=== PATIENT | female | born 1970 | race Caucasian/White ===

== ENCOUNTER 2019-02-18 16:19 | Inpatient (IN) ==
[2019-02-18] MEDS ORDERED: Ondansetron 4 MG/2 ML VIAL IVP ONE (16:29)
[2019-02-18] MEDS ORDERED: 0.9 % Sodium Chloride 1,000 ML IVC ONE (16:29)
[2019-02-18] MEDS ORDERED: Isovue-370 500 ML BOTTLE IVP ONE (16:32)
[2019-02-18 17:14] LABS: Basophils # 0.1 K/mcL (0.0-0.2); Basophils % 0.4 %; Eosinophils # 0.2 K/mcL (0.0-0.6); Eosinophils % 0.7 %; Hematocrit 42.1 % (35.3-44.9); Hemoglobin 14.5 g/dL (11.5-15.4); Immature Granulocytes % 0.5 % (0-4); Lymphocytes # 2.7 K/mcL (0.6-4.6); Lymphocytes % 11.1 %; Mean Corpuscular HGB Conc 34.4 g/dL (31.6-35.5); Mean Corpuscular Hemoglobin 31.3 pg (28.0-33.3); Mean Corpuscular Volume 90.7 fL (83.0-100.0); Mean Platelet Volume 9.1 fL (9.4-12.4); Monocytes # 1.3 K/mcL (0.0-1.3); Monocytes % 5.5 %; Neutrophils # 20.1 K/mcL (1.6-8.9); Platelet Count 364 K/mcL (140-400); Red Blood Count 4.64 M/mcL (3.82-4.97); Segmented Neutrophils % 81.8 %; White Blood Count 24.6 K/mcL (4.3-11.1)
[2019-02-18 17:35] LABS: Alanine Aminotransferase 5 Units/L (7-52); Albumin/Globulin Ratio 1.4 (1.1-2.2); Alkaline Phosphatase 87 Units/L (34-104); Aspartate Amino Transferase 9 Units/L (13-39); BUN/Creatinine Ratio 10 (6-26); Bilirubin,Total 0.5 mg/dL (0.3-1.0); Blood Urea Nitrogen 8 mg/dL (6-20); Calcium 8.8 mg/dL (8.6-10.3); Carbon Dioxide 26 mEq/L (23-29); Chloride 102 mEq/L (98-107); Globulin 2.9 g/dL (2.4-3.5); Glucose 92 mg/dL (70-105); Lipase 10 Units/L (11-82); Osmolality,Calculated 282 (280-300); Potassium 3.8 mEq/L (3.5-5.1); Sodium 137 mEq/L (136-145); Total Protein 6.9 g/dL (6.4-8.9); eGFR For African Americans > 60 (> 60); eGFR For Non-African Americans > 60 (> 60)
[2019-02-18] MEDS ORDERED: *HR* FentaNYL (PF) 100 MCG/2 ML VIAL IVP ONE (18:12)
[2019-02-18 18:28] LABS: Bilirubin,Urine Negative (Negative); Blood,Urine Trace (Negative); Clarity,Urine Clear (Clear); Color,Urine Yellow (Yellow); Glucose,Urine (UA) Normal (Normal); Ketones,Urine Negative (Negative); Leukocyte Esterase,Urine Negative (Negative); Nitrite,Urine Negative (Negative); PH,Urine 6.5 pH Units (5.0-8.0); Protein,Urine Negative (Neg-Trace); Specific Gravity,Urine 1.017 (1.010-1.025); Urobilinogen,Urine Normal (Normal)
[2019-02-18] MEDS ORDERED: MetroNIDAZOLE 500 MG/100 ML 500 MG/100 ML BAG IVPB ONE (18:28)
[2019-02-18 18:30] LABS: Bacteria,Urine None Seen per hpf (None-Few); Hyaline Casts,Urine None Seen per lpf (None-Few); Squamous Epithelial Cell,Urine Many per lpf (None-Few); WBC,Urine 0-3 per hpf (0-3)
[2019-02-18] MEDS ORDERED: Naloxone 0.4 MG/ML INJ IVP PRN (20:39)
[2019-02-18] MEDS: 0.9 % Sodium Chloride 1,000 ML IVC SCH (21:01)
[2019-02-18] MEDS: Ketorolac 15 MG/ML VIAL IVP PRN (21:02)
[2019-02-18] MEDS: MetroNIDAZOLE 500 MG/100 ML 500 MG/100 ML BAG IVPB SCH (23:28)
[2019-02-19 04:09] LABS: Basophils # 0.1 K/mcL (0.0-0.2); Basophils % 0.4 %; Eosinophils # 0.1 K/mcL (0.0-0.6); Eosinophils % 0.4 %; Hematocrit 36.6 % (35.3-44.9); Immature Granulocytes % 0.5 % (0-4); Lymphocytes % 15.4 %; Mean Corpuscular HGB Conc 33.1 g/dL (31.6-35.5); Mean Corpuscular Hemoglobin 30.9 pg (28.0-33.3); Mean Corpuscular Volume 93.4 fL (83.0-100.0); Mean Platelet Volume 9.2 fL (9.4-12.4); Monocytes # 1.2 K/mcL (0.0-1.3); Monocytes % 6.2 %; Neutrophils # 14.8 K/mcL (1.6-8.9); Platelet Count 284 K/mcL (140-400); Red Blood Count 3.92 M/mcL (3.82-4.97); Red Cell Distribution Width 13.1 % (11.5-14.5); Segmented Neutrophils % 77.1 %; White Blood Count 19.2 K/mcL (4.3-11.1)
[2019-02-19 04:12] LABS: Hemoglobin 12.1 g/dL (11.5-15.4)
[2019-02-19 04:30] LABS: BUN/Creatinine Ratio 9 (6-26); Blood Urea Nitrogen 7 mg/dL (6-20); Calcium 7.9 mg/dL (8.6-10.3); Carbon Dioxide 23 mEq/L (23-29); Chloride 105 mEq/L (98-107); Glucose 87 mg/dL (70-105); Osmolality,Calculated 279 (280-300); Potassium 3.8 mEq/L (3.5-5.1); Sodium 136 mEq/L (136-145); eGFR For African Americans > 60 (> 60); eGFR For Non-African Americans > 60 (> 60)
[2019-02-19] MEDS: MetroNIDAZOLE 500 MG/100 ML 500 MG/100 ML BAG IVPB SCH ×3 (09:11→23:40)
[2019-02-19] MEDS: Nicotine 14 MG PATCH.TD24 TD SCH (09:45)
[2019-02-19] MEDS: 0.9 % Sodium Chloride 1,000 ML IVC SCH (15:02)
[2019-02-19] MEDS: *HR* Heparin 5,000 UNIT/ML VIAL SQ SCH (17:13)
[2019-02-19] MEDS: Ondansetron 4 MG/2 ML VIAL IVP PRN (18:29)
[2019-02-19] MEDS: Ketorolac 15 MG/ML VIAL IVP PRN (20:22)
[2019-02-20] MEDS: 0.9 % Sodium Chloride 1,000 ML IVC SCH (03:33)
[2019-02-20] MEDS: Ondansetron 4 MG/2 ML VIAL IVP PRN ×2 (03:34→12:58)
[2019-02-20] MEDS: *HR* Heparin 5,000 UNIT/ML VIAL SQ SCH ×2 (03:37→18:33)
[2019-02-20 06:04] LABS: Basophils # 0.1 K/mcL (0.0-0.2); Basophils % 0.4 %; Eosinophils # 0.3 K/mcL (0.0-0.6); Eosinophils % 1.5 %; Hematocrit 40.5 % (35.3-44.9); Hemoglobin 13.2 g/dL (11.5-15.4); Immature Granulocytes % 0.5 % (0-4); Lymphocytes # 3.2 K/mcL (0.6-4.6); Lymphocytes % 17.6 %; Mean Corpuscular HGB Conc 32.6 g/dL (31.6-35.5); Mean Corpuscular Hemoglobin 30.8 pg (28.0-33.3); Mean Corpuscular Volume 94.4 fL (83.0-100.0); Mean Platelet Volume 8.7 fL (9.4-12.4); Monocytes # 1.1 K/mcL (0.0-1.3); Monocytes % 5.7 %; Neutrophils # 13.7 K/mcL (1.6-8.9); Platelet Count 312 K/mcL (140-400); Red Blood Count 4.29 M/mcL (3.82-4.97); Red Cell Distribution Width 12.8 % (11.5-14.5); Segmented Neutrophils % 74.3 %; White Blood Count 18.5 K/mcL (4.3-11.1)
[2019-02-20 06:24] LABS: BUN/Creatinine Ratio 9 (6-26); Blood Urea Nitrogen 7 mg/dL (6-20); Calcium 8.5 mg/dL (8.6-10.3); Carbon Dioxide 23 mEq/L (23-29); Chloride 104 mEq/L (98-107); Glucose 71 mg/dL (70-105); Osmolality,Calculated 282 (280-300); Potassium 3.5 mEq/L (3.5-5.1); Sodium 138 mEq/L (136-145); eGFR For African Americans > 60 (> 60); eGFR For Non-African Americans > 60 (> 60)
[2019-02-20] MEDS: Ketorolac 15 MG/ML VIAL IVP PRN (06:56)
[2019-02-20] MEDS ORDERED: Dextrose Gel 15 GM/37.5 ML TUBE PO PRN (08:03)
[2019-02-20] MEDS: MetroNIDAZOLE 500 MG/100 ML 500 MG/100 ML BAG IVPB SCH ×3 (08:31→23:42)
[2019-02-20] MEDS: D5% in 0.9% NACL 1,000 ML IVC SCH (08:31)
[2019-02-20] MEDS: Nicotine 14 MG PATCH.TD24 TD SCH (08:32)
[2019-02-20] MEDS ORDERED: 0.9 % Sodium Chloride 1,000 ML IVC SCH (21:15)
[2019-02-21 05:18] LABS: Basophils # 0.1 K/mcL (0.0-0.2); Basophils % 0.5 %; Eosinophils # 0.3 K/mcL (0.0-0.6); Eosinophils % 2.6 %; Hematocrit 38.9 % (35.3-44.9); Hemoglobin 12.7 g/dL (11.5-15.4); Immature Granulocytes % 0.5 % (0-4); Lymphocytes # 2.5 K/mcL (0.6-4.6); Lymphocytes % 22.9 %; Mean Corpuscular HGB Conc 32.6 g/dL (31.6-35.5); Mean Corpuscular Hemoglobin 30.6 pg (28.0-33.3); Mean Corpuscular Volume 93.7 fL (83.0-100.0); Mean Platelet Volume 9.3 fL (9.4-12.4); Monocytes # 0.7 K/mcL (0.0-1.3); Monocytes % 6.4 %; Neutrophils # 7.4 K/mcL (1.6-8.9); Platelet Count 324 K/mcL (140-400); Red Blood Count 4.15 M/mcL (3.82-4.97); Red Cell Distribution Width 12.8 % (11.5-14.5); Segmented Neutrophils % 67.1 %
[2019-02-21] MEDS: Ondansetron 4 MG/2 ML VIAL IVP PRN ×2 (05:25→13:12)
[2019-02-21] MEDS: *HR* Heparin 5,000 UNIT/ML VIAL SQ SCH ×2 (05:27→19:30)
[2019-02-21 05:38] LABS: BUN/Creatinine Ratio 6 (6-26); Blood Urea Nitrogen 4 mg/dL (6-20); Calcium 8.3 mg/dL (8.6-10.3); Carbon Dioxide 27 mEq/L (23-29); Chloride 106 mEq/L (98-107); Glucose 99 mg/dL (70-105); Osmolality,Calculated 289 (280-300); Potassium 3.6 mEq/L (3.5-5.1); Sodium 141 mEq/L (136-145); eGFR For African Americans > 60 (> 60); eGFR For Non-African Americans > 60 (> 60)
[2019-02-21] MEDS: MetroNIDAZOLE 500 MG/100 ML 500 MG/100 ML BAG IVPB SCH (09:00)
[2019-02-21] MEDS: Nicotine 14 MG PATCH.TD24 TD SCH (09:01)
[2019-02-21] MEDS: Ketorolac 15 MG/ML VIAL IVP PRN (09:02)
[2019-02-21] MEDS: metroNIDAZOLE 500 MG TABLET PO SCH ×2 (19:29→22:13)
[2019-02-21] MEDS: 0.9 % Sodium Chloride 1,000 ML IVC SCH (19:30)
[2019-02-22] MEDS: Ondansetron 4 MG/2 ML VIAL IVP PRN (03:14)
[2019-02-22 05:27] LABS: Basophils # 0.1 K/mcL (0.0-0.2); Basophils % 0.5 %; Eosinophils # 0.3 K/mcL (0.0-0.6); Eosinophils % 3.1 %; Hematocrit 36.1 % (35.3-44.9); Hemoglobin 12.1 g/dL (11.5-15.4); Immature Granulocytes % 0.4 % (0-4); Lymphocytes # 2.5 K/mcL (0.6-4.6); Lymphocytes % 23.4 %; Mean Corpuscular HGB Conc 33.5 g/dL (31.6-35.5); Mean Corpuscular Hemoglobin 30.6 pg (28.0-33.3); Mean Corpuscular Volume 91.2 fL (83.0-100.0); Monocytes # 0.9 K/mcL (0.0-1.3); Monocytes % 8.7 %; Neutrophils # 6.8 K/mcL (1.6-8.9); Platelet Count 294 K/mcL (140-400); Red Blood Count 3.96 M/mcL (3.82-4.97); Red Cell Distribution Width 12.7 % (11.5-14.5); Segmented Neutrophils % 63.9 %; White Blood Count 10.6 K/mcL (4.3-11.1)
[2019-02-22] MEDS: *HR* Heparin 5,000 UNIT/ML VIAL SQ SCH ×2 (05:38→18:06)
[2019-02-22 05:46] LABS: BUN/Creatinine Ratio 9 (6-26); Blood Urea Nitrogen 6 mg/dL (6-20); Calcium 8.3 mg/dL (8.6-10.3); Carbon Dioxide 28 mEq/L (23-29); Chloride 107 mEq/L (98-107); Glucose 98 mg/dL (70-105); Osmolality,Calculated 292 (280-300); Potassium 3.9 mEq/L (3.5-5.1); Sodium 142 mEq/L (136-145); eGFR For African Americans > 60 (> 60); eGFR For Non-African Americans > 60 (> 60)
[2019-02-22] MEDS: Nicotine 14 MG PATCH.TD24 TD SCH (09:04)
[2019-02-22] MEDS: Acetaminophen/Butalbital/CaffeineTABLET PO PRN ×2 (10:33→18:06)
[2019-02-22] MEDS: metroNIDAZOLE 500 MG TABLET PO SCH ×3 (10:34→21:33)
[2019-02-22] MEDS: 0.9 % Sodium Chloride 1,000 ML IVC SCH (14:35)
[2019-02-22] MEDS: Ketorolac 15 MG/ML VIAL IVP PRN (21:34)
[2019-02-23] MEDS: *HR* Heparin 5,000 UNIT/ML VIAL SQ SCH (05:06)
[2019-02-23 06:56] VITALS: BP 130/80
[2019-02-23] MEDS: D5% in 0.9% NACL 1,000 ML IVC SCH (07:13)
[2019-02-23] MEDS: 0.9 % Sodium Chloride 1,000 ML IVC SCH ×2 (07:13→08:19)
[2019-02-23] MEDS: metroNIDAZOLE 500 MG TABLET PO SCH (08:22)
[2019-02-23] MEDS: Nicotine 14 MG PATCH.TD24 TD SCH (08:23)
== END 2019-02-23 12:21 | disposition home or self-care (01) | DRG 244 ==
LOC: 3ANU 16:19 → EMEROOARM 16:19 → SUATTDRO 19:20 → 3ANU 20:16 → SUATTDRO 02-20 11:59
PROVIDERS: ADMIT Internal Medicine; ATTEND Student in an Organized Health Care Education/Training Program

== ENCOUNTER 2019-02-26 09:03 | Inpatient (IN) ==
[2019-02-26] MEDS ORDERED: 0.9 % Sodium Chloride 1,000 ML IVC ONE ×2 (09:40→13:06)
[2019-02-26] MEDS ORDERED: Ipratropium/Albuterol Neb 3 ML IH ONE (09:40)
[2019-02-26 09:51] LABS: Basophils % 0.2 %; Hematocrit 36.3 % (35.3-44.9); Hemoglobin 12.1 g/dL (11.5-15.4); Immature Granulocytes % 1.1 % (0-4); Lymphocytes # 0.6 K/mcL (0.6-4.6); Lymphocytes % 2.9 %; Mean Corpuscular HGB Conc 33.3 g/dL (31.6-35.5); Mean Corpuscular Hemoglobin 30.8 pg (28.0-33.3); Mean Corpuscular Volume 92.4 fL (83.0-100.0); Mean Platelet Volume 9.2 fL (9.4-12.4); Monocytes % 4.6 %; Neutrophils # 19.2 K/mcL (1.6-8.9); Platelet Count 264 K/mcL (140-400); Red Blood Count 3.93 M/mcL (3.82-4.97); Segmented Neutrophils % 91.2 %
[2019-02-26 09:52] LABS: White Blood Count 21.1 K/mcL (4.3-11.1)
[2019-02-26] MEDS ORDERED: Isovue-370 500 ML BOTTLE IVP ONE (10:14)
[2019-02-26 10:19] LABS: Alanine Aminotransferase 7 Units/L (7-52); Albumin 3.4 g/dL (3.5-5.7); Albumin/Globulin Ratio 1.2 (1.1-2.2); Alkaline Phosphatase 94 Units/L (34-104); Aspartate Amino Transferase 12 Units/L (13-39); BUN/Creatinine Ratio 11 (6-26); Bilirubin,Total 0.4 mg/dL (0.3-1.0); Blood Urea Nitrogen 8 mg/dL (6-20); Calcium 8.3 mg/dL (8.6-10.3); Carbon Dioxide 25 mEq/L (23-29); Chloride 100 mEq/L (98-107); Globulin 2.8 g/dL (2.4-3.5); Glucose 115 mg/dL (70-105); Lipase 14 Units/L (11-82); Magnesium 1.5 mg/dL (1.6-2.6); Osmolality,Calculated 283 (280-300); Potassium 2.9 mEq/L (3.5-5.1); Sodium 137 mEq/L (136-145); Total Protein 6.2 g/dL (6.4-8.9); Troponin I 0.04 ng/mL (< 0.04); eGFR For African Americans > 60 (> 60); eGFR For Non-African Americans > 60 (> 60)
[2019-02-26] MEDS ORDERED: Aspirin 81 MG TAB.CHEW PO ONE (10:20)
[2019-02-26] MEDS ORDERED: Potassium Chloride 40 MEQ, Lidocaine 1% 2 ML in 0.9 % Sodium Chloride 500 ML IVPB ONE (10:20)
[2019-02-26] MEDS: Nitroglycerin 0.4 MG TAB.SUBL SL SCH ×3 (10:46→10:59)
[2019-02-26 12:45] LABS: Bilirubin,Urine Negative (Negative); Blood,Urine Large (Negative); Clarity,Urine Clear (Clear); Color,Urine Yellow (Yellow); Glucose,Urine (UA) Normal (Normal); Ketones,Urine Negative (Negative); Leukocyte Esterase,Urine Negative (Negative); Nitrite,Urine Negative (Negative); Protein,Urine Negative (Neg-Trace); Specific Gravity,Urine > 1.030 (1.010-1.025); Urobilinogen,Urine Normal (Normal)
[2019-02-26 12:49] LABS: Bacteria,Urine None Seen per hpf (None-Few); Hyaline Casts,Urine None Seen per lpf (None-Few); RBC,Urine TNTC per hpf (0-3); Squamous Epithelial Cell,Urine Many per lpf (None-Few)
[2019-02-26] MEDS ORDERED: Piperacillin/Tazobactam 3.375 GM in 0.9 % Sodium Chloride Mini Bag 100 ML IVPB ONE (12:55)
[2019-02-26] MEDS ORDERED: Aminoglycoside Consult 1 EACH MC ONE (13:47)
[2019-02-26] MEDS ORDERED: Ondansetron 4 MG/2 ML VIAL IVP PRN (14:23)
[2019-02-26] MEDS ORDERED: Ondansetron ODT 4 MG TAB.RAPDIS SL PRN (14:23)
[2019-02-26] MEDS ORDERED: Naloxone 0.4 MG/ML INJ IVP PRN (14:23)
[2019-02-26] MEDS: 0.9 % Sodium Chloride 1,000 ML IVC SCH (15:26)
[2019-02-26] MEDS ORDERED: Vancomycin Oral Soln 125 MG/2.5 ML UDC PO SCH (17:00)
[2019-02-26] MEDS: *HR* OxyCODONE Immed Rel 5 MG TABLET PO PRN ×2 (18:14→22:26)
[2019-02-26] MEDS ORDERED: Acetaminophen 325 MG TABLET PO ONE (20:12)
[2019-02-26] MEDS: Piperacillin/Tazobactam 3.375 GM in 0.9 % Sodium Chloride Mini Bag 100 ML IVPB SCH (22:26)
[2019-02-27] MEDS: 0.9 % Sodium Chloride 1,000 ML IVC SCH ×4 (00:56→21:26)
[2019-02-27] MEDS: *HR* OxyCODONE Immed Rel 5 MG TABLET PO PRN ×5 (02:31→21:32)
[2019-02-27] MEDS ORDERED: Ibuprofen 600 MG TABLET PO ONE (04:31)
[2019-02-27 07:11] LABS: Basophils # 0.1 K/mcL (0.0-0.2); Basophils % 0.3 %; Eosinophils # 0.1 K/mcL (0.0-0.6); Eosinophils % 0.4 %; Hematocrit 31.4 % (35.3-44.9); Hemoglobin 10.5 g/dL (11.5-15.4); Immature Granulocytes % 0.5 % (0-4); Lymphocytes % 6.8 %; Mean Corpuscular HGB Conc 33.4 g/dL (31.6-35.5); Mean Corpuscular Hemoglobin 30.2 pg (28.0-33.3); Mean Corpuscular Volume 90.2 fL (83.0-100.0); Mean Platelet Volume 9.5 fL (9.4-12.4); Monocytes # 0.7 K/mcL (0.0-1.3); Monocytes % 5.1 %; Neutrophils # 12.5 K/mcL (1.6-8.9); Platelet Count 245 K/mcL (140-400); Red Blood Count 3.48 M/mcL (3.82-4.97); Red Cell Distribution Width 13.2 % (11.5-14.5); Segmented Neutrophils % 86.9 %; White Blood Count 14.3 K/mcL (4.3-11.1)
[2019-02-27 07:50] LABS: BUN/Creatinine Ratio 10 (6-26); Blood Urea Nitrogen 6 mg/dL (6-20); Calcium 7.6 mg/dL (8.6-10.3); Carbon Dioxide 22 mEq/L (23-29); Chloride 105 mEq/L (98-107); Glucose 90 mg/dL (70-105); Osmolality,Calculated 277 (280-300); Sodium 135 mEq/L (136-145); eGFR For African Americans > 60 (> 60); eGFR For Non-African Americans > 60 (> 60)
[2019-02-27] MEDS: Aspirin 81 MG TAB.CHEW PO SCH (08:26)
[2019-02-27] MEDS: Piperacillin/Tazobactam 3.375 GM in 0.9 % Sodium Chloride Mini Bag 100 ML IVPB SCH ×3 (08:36→23:09)
[2019-02-27] MEDS: Sennosides/Docusate Sodium TABLET PO SCH ×2 (11:57→20:02)
[2019-02-27] MEDS ORDERED: *HR* LORazepam 2 MG/ML VIAL IVP ONE (16:09)
[2019-02-27] MEDS: Nicotine 21 MG PATCH.TD24 TD SCH (16:19)
[2019-02-27] MEDS ORDERED: Acetaminophen 325 MG TABLET PO PRN (18:56)
[2019-02-28] MEDS: *HR* OxyCODONE Immed Rel 5 MG TABLET PO PRN (03:53)
[2019-02-28] MEDS: 0.9 % Sodium Chloride 1,000 ML IVC SCH ×3 (05:07→21:52)
[2019-02-28] MEDS ORDERED: *HR* Enoxaparin 40 MG/0.4 ML SYRINGE SQ SCH (06:00)
[2019-02-28 06:59] LABS: Hematocrit 32.8 % (35.3-44.9); Hemoglobin 11.2 g/dL (11.5-15.4); Mean Corpuscular HGB Conc 34.1 g/dL (31.6-35.5); Mean Corpuscular Hemoglobin 30.7 pg (28.0-33.3); Mean Corpuscular Volume 89.9 fL (83.0-100.0); Mean Platelet Volume 9.6 fL (9.4-12.4); Platelet Count 212 K/mcL (140-400); Red Blood Count 3.65 M/mcL (3.82-4.97); Red Cell Distribution Width 13.2 % (11.5-14.5); White Blood Count 17.1 K/mcL (4.3-11.1)
[2019-02-28 07:24] LABS: Chol/HDL Ratio 8.3 (0-4.9)
[2019-02-28 07:25] LABS: BUN/Creatinine Ratio 9 (6-26); Blood Urea Nitrogen 6 mg/dL (6-20); Carbon Dioxide 23 mEq/L (23-29); Chloride 104 mEq/L (98-107); Glucose 92 mg/dL (70-105); Osmolality,Calculated 281 (280-300); Sodium 137 mEq/L (136-145); eGFR For African Americans > 60 (> 60); eGFR For Non-African Americans > 60 (> 60)
[2019-02-28] MEDS ORDERED: Isovue-370 500 ML BOTTLE IVP ONE (07:59)
[2019-02-28] MEDS ORDERED: *HR* Promethazine 25 MG/ML VIAL IVP PRN (09:00)
[2019-02-28] MEDS: Piperacillin/Tazobactam 3.375 GM in 0.9 % Sodium Chloride Mini Bag 100 ML IVPB SCH ×2 (09:00→18:37)
[2019-02-28] MEDS ORDERED: *HR* FentaNYL (PF) 100 MCG/2 ML VIAL IVP ONE (09:00)
[2019-02-28] MEDS ORDERED: *HR* HYDROmorphone (PF) 1 MG/ML SYRINGE IVP PRN (09:28)
[2019-02-28] MEDS: Nicotine 21 MG PATCH.TD24 TD SCH (09:52)
[2019-02-28] MEDS: Sennosides/Docusate Sodium TABLET PO SCH (09:52)
[2019-02-28] MEDS: Aspirin 81 MG TAB.CHEW PO SCH (09:52)
[2019-02-28] MEDS ORDERED: Isovue-370 500 ML BOTTLE PO ONE (10:56)
[2019-02-28] MEDS ORDERED: Morphine PCA 30 MG/ 30 ML 30 ML PCA.VIAL IVC PRN (13:11)
[2019-02-28] MEDS: Acetaminophen IV 1,000 MG/100 ML INFUS..BTL IVPB SCH ×2 (13:47→18:37)
[2019-02-28] MEDS ORDERED: *HR* Rocuronium Bromide 50 MG/5 ML VIAL ONE (17:46)
[2019-02-28] MEDS ORDERED: Dexamethasone 4 MG/ML VIAL ONE ×2 (17:46→18:59)
[2019-02-28] MEDS ORDERED: Lidocaine -MPF 2% 2 ML VIAL ONE (17:46)
[2019-02-28] MEDS ORDERED: Ondansetron 4 MG/2 ML VIAL ONE (17:46)
[2019-02-28] MEDS ORDERED: *HR* FentaNYL (PF) 100 MCG/2 ML VIAL ONE (17:46)
[2019-02-28] MEDS ORDERED: *HR* Midazolam HCl 2 MG/2 ML VIAL ONE (17:46)
[2019-02-28] MEDS ORDERED: Lidocaine HCL 4 ML Topical Solution (Laryng-O-Jet Kit Sterile Pak) TP ONE (17:48)
[2019-02-28] MEDS ORDERED: Acetaminophen IV 0 MG/0 ML INFUS..BTL ONE (17:55)
[2019-02-28] MEDS ORDERED: Acetaminophen IV 1,000 MG/100 ML INFUS..BTL IVPB SCH (18:00)
[2019-02-28] MEDS ORDERED: *HR* HYDROMORPHONE 2 MG/ML VIAL ONE (19:00)
[2019-02-28] MEDS ORDERED: Ondansetron 4 MG/2 ML VIAL IVP ONE (19:05)
[2019-02-28] MEDS ORDERED: *HR* OxyCODONE Immed Rel 5 MG TABLET PO PRN (19:05)
[2019-02-28] MEDS ORDERED: Neostigmine Methylsulfate 3 MG/3 ML SYRINGE ONE (19:58)
[2019-02-28] MEDS: *HR* HYDROmorphone (PF) 1 MG/ML SYRINGE IVP PRN ×4 (20:19→20:42)
[2019-02-28] MEDS: *HR* Promethazine 25 MG/ML VIAL IVP PRN ×2 (20:20→20:44)
[2019-02-28] MEDS ORDERED: Naloxone 0.4 MG/ML INJ IVP PRN (21:11)
[2019-02-28] MEDS: Morphine PCA 30 MG/ 30 ML 30 ML PCA.VIAL IVC PRN (22:45)
[2019-03-01] MEDS: Piperacillin/Tazobactam 3.375 GM in 0.9 % Sodium Chloride Mini Bag 100 ML IVPB SCH ×4 (00:03→23:11)
[2019-03-01] MEDS ORDERED: Ketorolac 30 MG/ML VIAL IVP ONE (01:12)
[2019-03-01] MEDS: Acetaminophen IV 1,000 MG/100 ML INFUS..BTL IVPB SCH ×5 (05:50→23:07)
[2019-03-01] MEDS: *HR* Enoxaparin 40 MG/0.4 ML SYRINGE SQ SCH (05:52)
[2019-03-01] MEDS ORDERED: Pantoprazole 40 MG VIAL IVP SCH (06:00)
[2019-03-01 06:41] LABS: Hematocrit 33.8 % (35.3-44.9); Hemoglobin 11.5 g/dL (11.5-15.4); Mean Corpuscular Hemoglobin 30.7 pg (28.0-33.3); Mean Corpuscular Volume 90.4 fL (83.0-100.0); Mean Platelet Volume 10.8 fL (9.4-12.4); Platelet Count 240 K/mcL (140-400); Red Blood Count 3.74 M/mcL (3.82-4.97); Red Cell Distribution Width 13.2 % (11.5-14.5); White Blood Count 15.5 K/mcL (4.3-11.1)
[2019-03-01 06:47] LABS: BUN/Creatinine Ratio 18 (6-26); Blood Urea Nitrogen 10 mg/dL (6-20); Calcium 8.1 mg/dL (8.6-10.3); Carbon Dioxide 18 mEq/L (23-29); Chloride 106 mEq/L (98-107); Glucose 105 mg/dL (70-105); Magnesium 1.9 mg/dL (1.6-2.6); Osmolality,Calculated 287 (280-300); Potassium 4.8 mEq/L (3.5-5.1); Sodium 139 mEq/L (136-145); eGFR For African Americans > 60 (> 60); eGFR For Non-African Americans > 60 (> 60)
[2019-03-01] MEDS: 0.9 % Sodium Chloride 1,000 ML IVC SCH ×4 (07:39→23:10)
[2019-03-01] MEDS: Nicotine 21 MG PATCH.TD24 TD SCH (07:48)
[2019-03-01] MEDS: Gabapentin 300 MG CAPSULE PO SCH ×3 (08:33→20:08)
[2019-03-01] MEDS: Morphine PCA 30 MG/ 30 ML 30 ML PCA.VIAL IVC PRN (15:17)
[2019-03-02] MEDS: Acetaminophen IV 1,000 MG/100 ML INFUS..BTL IVPB SCH ×3 (05:22→17:45)
[2019-03-02] MEDS: *HR* Enoxaparin 40 MG/0.4 ML SYRINGE SQ SCH (05:22)
[2019-03-02] MEDS: Ondansetron 4 MG/2 ML VIAL IVP PRN ×2 (05:28→15:08)
[2019-03-02] MEDS: Pantoprazole 40 MG VIAL IVP SCH (05:30)
[2019-03-02] MEDS: Nicotine 21 MG PATCH.TD24 TD SCH (08:25)
[2019-03-02] MEDS: Piperacillin/Tazobactam 3.375 GM in 0.9 % Sodium Chloride Mini Bag 100 ML IVPB SCH ×2 (08:25→16:20)
[2019-03-02] MEDS: Gabapentin 300 MG CAPSULE PO SCH ×3 (08:25→20:30)
[2019-03-02 08:33] LABS: Basophils # 0.1 K/mcL (0.0-0.2); Basophils % 0.9 %; Eosinophils # 0.2 K/mcL (0.0-0.6); Eosinophils % 1.5 %; Hematocrit 31.6 % (35.3-44.9); Hemoglobin 10.8 g/dL (11.5-15.4); Immature Granulocytes % 6.1 % (0-4); Lymphocytes # 3.2 K/mcL (0.6-4.6); Lymphocytes % 22.5 %; Mean Corpuscular HGB Conc 34.2 g/dL (31.6-35.5); Mean Corpuscular Hemoglobin 30.5 pg (28.0-33.3); Mean Corpuscular Volume 89.3 fL (83.0-100.0); Mean Platelet Volume 10.3 fL (9.4-12.4); Monocytes # 0.8 K/mcL (0.0-1.3); Monocytes % 5.7 %; Platelet Count 268 K/mcL (140-400); Red Blood Count 3.54 M/mcL (3.82-4.97); Red Cell Distribution Width 13.4 % (11.5-14.5); Segmented Neutrophils % 63.3 %; White Blood Count 14.3 K/mcL (4.3-11.1)
[2019-03-02 08:39] LABS: Neutrophils # 9.1 K/mcL (1.6-8.9)
[2019-03-02 08:59] LABS: BUN/Creatinine Ratio 14 (6-26); Blood Urea Nitrogen 8 mg/dL (6-20); Calcium 7.6 mg/dL (8.6-10.3); Carbon Dioxide 23 mEq/L (23-29); Chloride 109 mEq/L (98-107); Glucose 100 mg/dL (70-105); Osmolality,Calculated 288 (280-300); Potassium 3.4 mEq/L (3.5-5.1); Sodium 140 mEq/L (136-145); eGFR For African Americans > 60 (> 60); eGFR For Non-African Americans > 60 (> 60)
[2019-03-02 09:05] LABS: Platelet Estimate Normal (Normal); Reactive Lymphocytes Present (Not Present); Toxic Granulation Present (Not Present)
[2019-03-02 09:06] LABS: Large Platelets Present (Not Present)
[2019-03-02] MEDS: Morphine PCA 30 MG/ 30 ML 30 ML PCA.VIAL IVC PRN (14:41)
[2019-03-02] MEDS: 0.9 % Sodium Chloride 1,000 ML IVC SCH (15:16)
[2019-03-02] MEDS ORDERED: Acetaminophen/Butalbital/CaffeineTABLET PO PRN (20:30)
[2019-03-03] MEDS: 0.9 % Sodium Chloride 1,000 ML IVC SCH ×5 (00:24→20:06)
[2019-03-03] MEDS: Piperacillin/Tazobactam 3.375 GM in 0.9 % Sodium Chloride Mini Bag 100 ML IVPB SCH ×4 (00:27→23:34)
[2019-03-03 05:40] LABS: Hematocrit 32.9 % (35.3-44.9); Hemoglobin 10.9 g/dL (11.5-15.4); Mean Corpuscular HGB Conc 33.1 g/dL (31.6-35.5); Mean Corpuscular Hemoglobin 30.7 pg (28.0-33.3); Mean Corpuscular Volume 92.7 fL (83.0-100.0); Mean Platelet Volume 10.3 fL (9.4-12.4); Platelet Count 283 K/mcL (140-400); Red Blood Count 3.55 M/mcL (3.82-4.97); Red Cell Distribution Width 13.5 % (11.5-14.5); White Blood Count 13.1 K/mcL (4.3-11.1)
[2019-03-03 05:58] LABS: BUN/Creatinine Ratio 10 (6-26); Blood Urea Nitrogen 6 mg/dL (6-20); Calcium 7.9 mg/dL (8.6-10.3); Carbon Dioxide 23 mEq/L (23-29); Chloride 106 mEq/L (98-107); Glucose 83 mg/dL (70-105); Osmolality,Calculated 287 (280-300); Potassium 3.4 mEq/L (3.5-5.1); Sodium 140 mEq/L (136-145); eGFR For African Americans > 60 (> 60); eGFR For Non-African Americans > 60 (> 60)
[2019-03-03 06:04] LABS: Eosinophils # 0.3 K/mcL (0.0-0.6); Neutrophils # 7.9 K/mcL (1.6-8.9)
[2019-03-03 06:05] LABS: Platelet Estimate Normal (Normal); Reactive Lymphocytes Present (Not Present)
[2019-03-03] MEDS: Acetaminophen IV 1,000 MG/100 ML INFUS..BTL IVPB SCH (06:09)
[2019-03-03] MEDS: Pantoprazole 40 MG VIAL IVP SCH (06:13)
[2019-03-03] MEDS: *HR* Enoxaparin 40 MG/0.4 ML SYRINGE SQ SCH (06:14)
[2019-03-03] MEDS ORDERED: Potassium Chloride Elixir 20 MEQ/15 ML UDC PO ONE (07:20)
[2019-03-03] MEDS: Gabapentin 300 MG CAPSULE PO SCH ×3 (08:03→20:06)
[2019-03-03] MEDS: Nicotine 21 MG PATCH.TD24 TD SCH (08:03)
[2019-03-03] MEDS: Ondansetron 4 MG/2 ML VIAL IVP PRN ×2 (08:24→17:48)
[2019-03-03] MEDS: Morphine PCA 30 MG/ 30 ML 30 ML PCA.VIAL IVC PRN (09:30)
[2019-03-04] MEDS: Morphine PCA 30 MG/ 30 ML 30 ML PCA.VIAL IVC PRN (05:06)
[2019-03-04] MEDS: *HR* Enoxaparin 40 MG/0.4 ML SYRINGE SQ SCH (05:57)
[2019-03-04 06:08] LABS: Basophils # 0.1 K/mcL (0.0-0.2); Basophils % 0.8 %; Eosinophils # 0.5 K/mcL (0.0-0.6); Eosinophils % 4.5 %; Hematocrit 31.8 % (35.3-44.9); Hemoglobin 10.8 g/dL (11.5-15.4); Immature Granulocytes % 4.9 % (0-4); Lymphocytes # 2.8 K/mcL (0.6-4.6); Lymphocytes % 25.9 %; Mean Corpuscular Hemoglobin 30.9 pg (28.0-33.3); Mean Corpuscular Volume 90.9 fL (83.0-100.0); Mean Platelet Volume 9.9 fL (9.4-12.4); Monocytes # 0.4 K/mcL (0.0-1.3); Neutrophils # 6.4 K/mcL (1.6-8.9); Platelet Count 311 K/mcL (140-400); Red Cell Distribution Width 13.7 % (11.5-14.5); Segmented Neutrophils % 59.9 %; White Blood Count 10.7 K/mcL (4.3-11.1)
[2019-03-04] MEDS: Pantoprazole 40 MG VIAL IVP SCH (06:22)
[2019-03-04] MEDS: Ondansetron 4 MG/2 ML VIAL IVP PRN (06:26)
[2019-03-04 06:29] LABS: BUN/Creatinine Ratio 8 (6-26); Blood Urea Nitrogen 5 mg/dL (6-20); Carbon Dioxide 28 mEq/L (23-29); Chloride 105 mEq/L (98-107); Glucose 99 mg/dL (70-105); Osmolality,Calculated 285 (280-300); Potassium 3.7 mEq/L (3.5-5.1); Sodium 139 mEq/L (136-145); eGFR For African Americans > 60 (> 60); eGFR For Non-African Americans > 60 (> 60)
[2019-03-04] MEDS: 0.9 % Sodium Chloride 1,000 ML IVC SCH ×2 (09:54→23:50)
[2019-03-04] MEDS: Nicotine 21 MG PATCH.TD24 TD SCH (09:55)
[2019-03-04] MEDS: Piperacillin/Tazobactam 3.375 GM in 0.9 % Sodium Chloride Mini Bag 100 ML IVPB SCH ×3 (09:56→23:53)
[2019-03-04] MEDS: Gabapentin 300 MG CAPSULE PO SCH ×3 (09:56→20:09)
[2019-03-05 01:51] LABS: Hematocrit 31.4 % (35.3-44.9); Hemoglobin 10.6 g/dL (11.5-15.4); Mean Corpuscular HGB Conc 33.8 g/dL (31.6-35.5); Mean Corpuscular Hemoglobin 30.6 pg (28.0-33.3); Mean Corpuscular Volume 90.8 fL (83.0-100.0); Mean Platelet Volume 9.8 fL (9.4-12.4); Platelet Count 376 K/mcL (140-400); Red Blood Count 3.46 M/mcL (3.82-4.97); Red Cell Distribution Width 13.6 % (11.5-14.5); White Blood Count 12.4 K/mcL (4.3-11.1)
[2019-03-05 02:09] LABS: BUN/Creatinine Ratio 11 (6-26); Blood Urea Nitrogen 7 mg/dL (6-20); Calcium 8.1 mg/dL (8.6-10.3); Carbon Dioxide 29 mEq/L (23-29); Chloride 104 mEq/L (98-107); Glucose 96 mg/dL (70-105); Osmolality,Calculated 284 (280-300); Potassium 3.8 mEq/L (3.5-5.1); Sodium 138 mEq/L (136-145); eGFR For African Americans > 60 (> 60); eGFR For Non-African Americans > 60 (> 60)
[2019-03-05] MEDS: Ondansetron 4 MG/2 ML VIAL IVP PRN (04:00)
[2019-03-05] MEDS: *HR* Enoxaparin 40 MG/0.4 ML SYRINGE SQ SCH (04:51)
[2019-03-05] MEDS: Morphine PCA 30 MG/ 30 ML 30 ML PCA.VIAL IVC PRN (05:11)
[2019-03-05] MEDS: Pantoprazole 40 MG VIAL IVP SCH (06:41)
[2019-03-05 07:47] LABS: Hematocrit 29.5 % (35.3-44.9); Hemoglobin 10.3 g/dL (11.5-15.4)
[2019-03-05 08:55] LABS: Hematocrit 31.5 % (35.3-44.9); Hemoglobin 10.9 g/dL (11.5-15.4)
[2019-03-05] MEDS: Piperacillin/Tazobactam 3.375 GM in 0.9 % Sodium Chloride Mini Bag 100 ML IVPB SCH ×2 (09:55→17:51)
[2019-03-05] MEDS: Gabapentin 300 MG CAPSULE PO SCH ×3 (09:55→21:07)
[2019-03-05] MEDS: Nicotine 21 MG PATCH.TD24 TD SCH (09:56)
[2019-03-05 13:49] LABS: Hemoglobin 11.5 g/dL (11.5-15.4)
[2019-03-05] MEDS: 0.9 % Sodium Chloride 1,000 ML IVC SCH (13:58)
[2019-03-05 16:35] LABS: Hematocrit 32.8 % (35.3-44.9); Hemoglobin 11.2 g/dL (11.5-15.4)
[2019-03-05 20:51] LABS: Hematocrit 32.9 % (35.3-44.9); Hemoglobin 11.2 g/dL (11.5-15.4)
[2019-03-06] MEDS: Piperacillin/Tazobactam 3.375 GM in 0.9 % Sodium Chloride Mini Bag 100 ML IVPB SCH ×4 (00:10→23:59)
[2019-03-06] MEDS: 0.9 % Sodium Chloride 1,000 ML IVC SCH ×2 (01:48→16:21)
[2019-03-06] MEDS: Morphine PCA 30 MG/ 30 ML 30 ML PCA.VIAL IVC PRN (04:13)
[2019-03-06] MEDS: Ondansetron 4 MG/2 ML VIAL IVP PRN ×2 (04:25→17:33)
[2019-03-06 04:59] LABS: Hematocrit 32.5 % (35.3-44.9); Hemoglobin 10.5 g/dL (11.5-15.4); Mean Corpuscular HGB Conc 32.3 g/dL (31.6-35.5); Mean Corpuscular Hemoglobin 30.3 pg (28.0-33.3); Mean Corpuscular Volume 93.7 fL (83.0-100.0); Mean Platelet Volume 9.6 fL (9.4-12.4); Platelet Count 454 K/mcL (140-400); Red Blood Count 3.47 M/mcL (3.82-4.97); White Blood Count 12.8 K/mcL (4.3-11.1)
[2019-03-06] MEDS: *HR* Enoxaparin 40 MG/0.4 ML SYRINGE SQ SCH (05:08)
[2019-03-06 05:24] LABS: BUN/Creatinine Ratio 10 (6-26); Blood Urea Nitrogen 7 mg/dL (6-20); Calcium 8.6 mg/dL (8.6-10.3); Carbon Dioxide 27 mEq/L (23-29); Chloride 105 mEq/L (98-107); Glucose 93 mg/dL (70-105); Osmolality,Calculated 286 (280-300); Potassium 3.9 mEq/L (3.5-5.1); Sodium 139 mEq/L (136-145); eGFR For African Americans > 60 (> 60); eGFR For Non-African Americans > 60 (> 60)
[2019-03-06] MEDS: Pantoprazole 40 MG VIAL IVP SCH (06:50)
[2019-03-06] MEDS: Gabapentin 300 MG CAPSULE PO SCH ×3 (09:09→20:38)
[2019-03-06] MEDS: Nicotine 21 MG PATCH.TD24 TD SCH (09:10)
[2019-03-06] MEDS: Ketorolac 15 MG/ML VIAL IVP SCH ×3 (12:23→23:59)
[2019-03-06] MEDS: Fluconazole 400 MG/200 ML 400 MG/200 ML BAG IVPB SCH (12:47)
[2019-03-06] MEDS: *HR* OxyCODONE/APAP 5/325 TABLET PO PRN (16:20)
[2019-03-06] MEDS: *HR* Promethazine 25 MG/ML VIAL IVP PRN (18:10)
[2019-03-07] MEDS: *HR* Promethazine 25 MG/ML VIAL IVP PRN (00:22)
[2019-03-07] MEDS: *HR* OxyCODONE/APAP 5/325 TABLET PO PRN ×5 (00:31→20:42)
[2019-03-07] MEDS: *HR* Enoxaparin 40 MG/0.4 ML SYRINGE SQ SCH (05:49)
[2019-03-07] MEDS: 0.9 % Sodium Chloride 1,000 ML IVC SCH (06:25)
[2019-03-07] MEDS: Ketorolac 15 MG/ML VIAL IVP SCH (06:28)
[2019-03-07] MEDS: Gabapentin 300 MG CAPSULE PO SCH ×3 (07:31→20:41)
[2019-03-07] MEDS: Nicotine 21 MG PATCH.TD24 TD SCH (07:31)
[2019-03-07] MEDS: Fluconazole 400 MG/200 ML 400 MG/200 ML BAG IVPB SCH (07:31)
[2019-03-07] MEDS: Pantoprazole 40 MG VIAL IVP SCH (07:31)
[2019-03-07] MEDS: Piperacillin/Tazobactam 3.375 GM in 0.9 % Sodium Chloride Mini Bag 100 ML IVPB SCH ×3 (07:31→23:33)
[2019-03-07 07:41] LABS: Hemoglobin 9.6 g/dL (11.5-15.4); Mean Corpuscular Hemoglobin 30.4 pg (28.0-33.3); Mean Corpuscular Volume 94.9 fL (83.0-100.0); Mean Platelet Volume 9.4 fL (9.4-12.4); Platelet Count 466 K/mcL (140-400); Red Blood Count 3.16 M/mcL (3.82-4.97); Red Cell Distribution Width 14.3 % (11.5-14.5); White Blood Count 12.9 K/mcL (4.3-11.1)
[2019-03-07 08:05] LABS: BUN/Creatinine Ratio 12 (6-26); Blood Urea Nitrogen 9 mg/dL (6-20); Calcium 8.3 mg/dL (8.6-10.3); Carbon Dioxide 26 mEq/L (23-29); Chloride 105 mEq/L (98-107); Glucose 112 mg/dL (70-105); Osmolality,Calculated 291 (280-300); Potassium 4.2 mEq/L (3.5-5.1); Sodium 141 mEq/L (136-145); eGFR For African Americans > 60 (> 60); eGFR For Non-African Americans > 60 (> 60)
[2019-03-07] MEDS ORDERED: Ibuprofen 600 MG TABLET PO PRN (09:54)
[2019-03-07] MEDS ORDERED: Acetaminophen 325 MG TABLET PO ONE (22:39)
[2019-03-08] MEDS: *HR* OxyCODONE/APAP 5/325 TABLET PO PRN ×3 (00:58→12:42)
[2019-03-08] MEDS: *HR* Enoxaparin 40 MG/0.4 ML SYRINGE SQ SCH (07:17)
[2019-03-08] MEDS: Gabapentin 300 MG CAPSULE PO SCH (08:07)
[2019-03-08] MEDS: Nicotine 21 MG PATCH.TD24 TD SCH (08:07)
[2019-03-08] MEDS: Piperacillin/Tazobactam 3.375 GM in 0.9 % Sodium Chloride Mini Bag 100 ML IVPB SCH (08:08)
[2019-03-08] MEDS: Fluconazole 400 MG/200 ML 400 MG/200 ML BAG IVPB SCH (08:14)
[2019-03-08 09:08] LABS: Hematocrit 31.1 % (35.3-44.9); Hemoglobin 10.3 g/dL (11.5-15.4); Mean Corpuscular HGB Conc 33.1 g/dL (31.6-35.5); Mean Corpuscular Hemoglobin 30.6 pg (28.0-33.3); Mean Corpuscular Volume 92.3 fL (83.0-100.0); Mean Platelet Volume 9.4 fL (9.4-12.4); Platelet Count 589 K/mcL (140-400); Red Blood Count 3.37 M/mcL (3.82-4.97); Red Cell Distribution Width 14.5 % (11.5-14.5); White Blood Count 11.8 K/mcL (4.3-11.1)
[2019-03-08 10:36] VITALS: BP 132/77
[2019-03-09] MEDS ORDERED: Fluconazole 100 MG TABLET PO SCH (09:00)
== END 2019-03-08 14:18 | disposition home or self-care (01) | DRG 710 ==
LOC: EMEROOARM 09:03 → 2ANU 09:03 → SUATTDRO 13:46 → 2ANU 13:52 → SUATTDRO 02-27 18:03
PROVIDERS: ADMIT Family Medicine; ATTEND Family Medicine

== ENCOUNTER 2019-03-11 20:00 | Observation (INO) ==
[2019-03-11] MEDS ORDERED: 0.9 % Sodium Chloride 1,000 ML IVC ONE (20:14)
[2019-03-11] MEDS ORDERED: Ipratropium/Albuterol Neb 3 ML IH ONE (20:14)
[2019-03-11] MEDS ORDERED: Isovue-370 500 ML BOTTLE IVP ONE (20:14)
[2019-03-11] MEDS ORDERED: predniSONE 20 MG TABLET PO ONE (20:14)
[2019-03-11 20:40] LABS: Basophils # 0.1 K/mcL (0.0-0.2); Basophils % 1.1 %; Eosinophils # 0.2 K/mcL (0.0-0.6); Eosinophils % 1.6 %; Hematocrit 36.3 % (35.3-44.9); Hemoglobin 12.2 g/dL (11.5-15.4); Immature Granulocytes % 0.4 % (0-4); Lymphocytes # 2.2 K/mcL (0.6-4.6); Lymphocytes % 22.2 %; Mean Corpuscular HGB Conc 33.6 g/dL (31.6-35.5); Mean Corpuscular Volume 92.4 fL (83.0-100.0); Mean Platelet Volume 8.7 fL (9.4-12.4); Monocytes # 0.7 K/mcL (0.0-1.3); Monocytes % 6.7 %; Neutrophils # 6.7 K/mcL (1.6-8.9); Platelet Count 812 K/mcL (140-400); Red Blood Count 3.93 M/mcL (3.82-4.97); Red Cell Distribution Width 14.4 % (11.5-14.5); White Blood Count 9.9 K/mcL (4.3-11.1)
[2019-03-11 21:00] LABS: BUN/Creatinine Ratio 20 (6-26); Blood Urea Nitrogen 14 mg/dL (6-20); Calcium 9.7 mg/dL (8.6-10.3); Carbon Dioxide 22 mEq/L (23-29); Chloride 103 mEq/L (98-107); Glucose 110 mg/dL (70-105); Osmolality,Calculated 283 (280-300); Potassium 4.8 mEq/L (3.5-5.1); Sodium 136 mEq/L (136-145); eGFR For African Americans > 60 (> 60); eGFR For Non-African Americans > 60 (> 60)
[2019-03-11 21:02] LABS: Troponin I < 0.03 ng/mL (< 0.04)
[2019-03-11] MEDS ORDERED: Aspirin 325 MG TABLET PO ONE (22:04)
[2019-03-11] MEDS ORDERED: Nitroglycerin 0.4 MG TAB.SUBL SL PRN (22:12)
[2019-03-11] MEDS ORDERED: Ipratropium/Albuterol Neb 3 ML IH PRN (22:31)
[2019-03-12 03:09] LABS: Basophils % 0.4 %; Hemoglobin 11.3 g/dL (11.5-15.4); Immature Granulocytes % 0.5 % (0-4); Lymphocytes # 0.8 K/mcL (0.6-4.6); Lymphocytes % 7.7 %; Mean Corpuscular HGB Conc 32.3 g/dL (31.6-35.5); Mean Corpuscular Hemoglobin 30.5 pg (28.0-33.3); Mean Corpuscular Volume 94.6 fL (83.0-100.0); Mean Platelet Volume 9.2 fL (9.4-12.4); Monocytes # 0.1 K/mcL (0.0-1.3); Monocytes % 0.7 %; Neutrophils # 9.7 K/mcL (1.6-8.9); Platelet Count 785 K/mcL (140-400); Red Cell Distribution Width 14.2 % (11.5-14.5); Segmented Neutrophils % 90.7 %; White Blood Count 10.7 K/mcL (4.3-11.1)
[2019-03-12 03:14] LABS: BUN/Creatinine Ratio 19 (6-26); Blood Urea Nitrogen 13 mg/dL (6-20); Calcium 9.3 mg/dL (8.6-10.3); Carbon Dioxide 20 mEq/L (23-29); Chloride 104 mEq/L (98-107); Glucose 205 mg/dL (70-105); Osmolality,Calculated 288 (280-300); Sodium 136 mEq/L (136-145); eGFR For African Americans > 60 (> 60); eGFR For Non-African Americans > 60 (> 60)
[2019-03-12] MEDS ORDERED: Ketorolac 15 MG/ML VIAL IVP PRN (04:25)
[2019-03-12] MEDS ORDERED: Naloxone 0.4 MG/ML INJ IVP PRN (04:25)
[2019-03-12] MEDS: *HR* Heparin 5,000 UNIT/ML VIAL SQ SCH ×2 (05:56→15:38)
[2019-03-12] MEDS: *HR* OxyCODONE/APAP 5/325 TABLET PO PRN ×2 (06:21→12:23)
[2019-03-12] MEDS ORDERED: Regadenoson 0.4 MG/5 ML SYRINGE IVP ONE (07:35)
[2019-03-12] MEDS ORDERED: Aspirin 81 MG TAB.CHEW PO SCH (09:00)
[2019-03-12] MEDS ORDERED: Ondansetron ODT 4 MG TAB.RAPDIS SL PRN (09:56)
[2019-03-12] MEDS ORDERED: metroNIDAZOLE 500 MG TABLET PO SCH (15:00)
[2019-03-12 16:06] VITALS: BP 136/79
[2019-03-13] MEDS ORDERED: NON-FORMULARY MEDICATION 1 EACH EACH (Norgestimate-Ethinyl Estradiol [Sprintec 28 Day Tabl PO SCH (09:00)
== END 2019-03-12 17:27 | disposition left against medical advice (07) ==
LOC: 3BNU 20:00 → EMEROOARM 20:00 → SUATTDRO 22:49 → 3BNU 23:00
PROVIDERS: ADMIT Internal Medicine; ATTEND Internal Medicine